=== PATIENT | female | born 1990 | race Caucasian/White ===

== ENCOUNTER 2020-03-05 17:44 | Inpatient (IN) | payer OTHER ==
[~2020-03-05 17:44] MED LIST: NORCO 5-325 TA1 EACH PO
[2020-03-05 19:03] LABS: HEMOGLOBIN 12.5 gm/dl (12.3-15.3); RED BLOOD COUNT 4.06 M/UL (4.00-5.10); WHITE BLOOD COUNT 12.8 K/UL (4.5-11.0)
[2020-03-05 19:21] LABS: BUN/CREATININE RATIO 14 (0-10)
[2020-03-06 06:40] LABS: HEMOGLOBIN 12.7 gm/dl (12.3-15.3); RED BLOOD COUNT 4.15 M/UL (4.00-5.10); WHITE BLOOD COUNT 12.4 K/UL (4.5-11.0)
[2020-03-06 06:56] LABS: BUN/CREATININE RATIO 17 (0-10)
== END 2020-03-06 09:35 | disposition short-term general hospital (02) | DRG 833 ==
LOC: GENOP 17:44 → OB 17:57
PROVIDERS: ADMIT Obstetrics & Gynecology
PROC: 4A1HX4Z Monitoring of Products of Conception, Cardiac Electrical Activity, External Approach (ICD-10-PCS; principal; 2020-03-05)
DX: O14.13 Severe pre-eclampsia, third trimester (principal); O36.5930 Maternal care for other known or suspected poor fetal growth, third trimester, not applicable or unspecified; Z3A.35 35 weeks gestation of pregnancy; O99.333 Smoking (tobacco) complicating pregnancy, third trimester; F17.200 Nicotine dependence, unspecified, uncomplicated; R51.9 Headache, unspecified; Z20.822 Contact with and (suspected) exposure to COVID-19
CPT/HCPCS: 36415; 80053; 80307; 81001; 82570; 83518; 84156; 84550; 85025; 85610; 85730; 87635; J0702; J3475; J7120